=== PATIENT | female | born 1945 | race Caucasian/White ===

== ENCOUNTER 2016-08-29 15:00 | Inpatient (IN) | payer MEDICARE, OTHER ==
[~2016-08-29] VITALS: Ht 157.5 cm; Wt 98.4 kg
--- NOTE | ~2016-08-29 | OR ---
PATIENT'S NAME: JESSICA SILVESTRE [facility] AGE: 71 Y [address] ROOM: [place] [address] LOCATION: [facility] ADMIT DATE: 09/05/2016 OR/Procedure Report DISCHARGE DATE: FAMILY PHYSICIAN: Bautista Ayala MD ATTENDING PHYSICIAN: ROYA MARIO SURGEON: Roya Mario MD DIRECTOR STRATEGY: David Antonio CST/SPOT CLEANER and Trino Santana. DATE OF PROCEDURE: 09/05/2016 PRE-OP DIAGNOSES: 1. Primary osteoarthritis, right hip. 2. Obesity. POST-OP DIAGNOSES: 1. Primary osteoarthritis, right hip. 2. Obesity. OPERATION: Right total hip arthroplasty. ANESTHESIA: Spinal anesthesia plus subcutaneous and periarticular local anesthesia (ropivacaine with epinephrine). ESTIMATED BLOOD LOSS: Approximately 250 mL. DRAIN: None. SPECIMEN: None. COMPLICATIONS: None. IMPLANTS: 1. [place] Trident Tritanium, size 50 mm, hemispherical, uncemented acetabular shell with 1 dome hole cover and no screws. 2. [place]arth X3 neutral acetabular polyethylene liner with 36 mm inner diameter. 3. [place] Accolade II, size 4, high-offset, uncemented femoral component. 4. 36 mm metallic femoral head with +5 mm neck length. INDICATION FOR SURGERY: Jessica Silvestre is a 71-year old female who presents with advanced right hip primary osteoarthritis and associated severely compromised activities of daily living. The patient has decided to proceed with hip replacement after having been thoroughly counseled regarding the associated risks, benefits, and limitations. We have specifically reviewed the risks and implications of infection, deep venous thrombosis, pulmonary embolism, PATIENT'S NAME: JESSICA SILVESTRE [facility] AGE: 71 Y [address] ROOM: [place] [address] LOCATION: [facility] ADMIT DATE: 09/05/2016 OR/Procedure Report DISCHARGE DATE: FAMILY PHYSICIAN: Bautista Ayala MD ATTENDING PHYSICIAN: ROYA MARIO mortality, neurovascular complications, blood transfusion (and associated potential for disease transmission or transfusion reaction), stiffness, instability, leg length discrepancy, mechanical deterioration of the components (due to wear and to loosening), and the potential need for revision. DESCRIPTION OF PROCEDURE: The patient was positioned in a lateral decubitus position with the right side up after administration of anesthesia and prophylactic antibiotics. An axillary roll was placed and the non-operative leg was well padded. The pelvis was locked perpendicularly to the floor on a pegboard. The right hip and entire operative extremity were prepped and draped with vigilant sterile technique. The patient's name as well as the intended operative side and procedure were confirmed with a verbal time-out involving myself, the circulating nurse, the scrub nurse, and the anesthesiologist. The right hip was approached through a standard posterolateral incision. The fascia randolph and the gluteus vu fascia were sharply divided in line with the overlying skin incision. The sciatic nerve was identified and was vigilantly protected throughout the entire case. The short external rotators and posterior capsule were divided from their respective femoral insertions and tagged with four #1 Ethibond sutures for later repair. The hip was posteriorly dislocated with combined flexion, adduction, and internal rotation. The femoral neck osteotomy was performed with an oscillating saw. Inspection of the femoral head demonstrated full-thickness loss of articular cartilage throughout the majority of its weightbearing surface. There were small osteophytes at the periphery of the femoral head. There was no collapse of the femoral head. The patient was noted to be moderately severely osteopenic. Circumferential acetabular exposure was obtained. Examination of the acetabulum demonstrated a large effusion consisting of benign-appearing translucent synovial fluid. There was full- thickness loss of articular cartilage throughout the majority of the acetabular dome. There was extensive degenerative tearing of the anterior acetabular labrum. There was no dysplasia. There were no loose bodies. Remnants of the acetabular labrum were sharply thoroughly excised. The acetabulum was sequentially progressively reamed up to 49 mm with hemispherical power reamers. The final acetabular shell was impacted into position in 20 degrees of anteversion and 45 degrees of inclination. An excellent press-fit was obtained. No supplemental dome screw fixation was necessary. A neutral trial liner was inserted. Attention was next focused upon femoral preparation. The femoral canal PATIENT'S NAME: JESSICA SILVESTRE [facility] AGE: 71 Y [address] ROOM: [address] [address] LOCATION: [facility] ADMIT DATE: 09/05/2016 OR/Procedure Report DISCHARGE DATE: FAMILY PHYSICIAN: Bautista Ayala MD ATTENDING PHYSICIAN: ROYA MARIO initiator was utilized. No reaming was performed (except for with the canal finder). Again, the patient was noted to be moderately severely osteopenic (particularly during reaming, wherein the canal finder could be inserted without any type of rotation to advance it). The femoral canal was subsequently sequentially progressively broached up to a size 4. The size 4 broach obtained excellent axial and rotational stability. Trial reductions with the above specified construct yielded acceptable stability and acceptable reproduction of leg length and offset. All trial components were removed. The final acetabular liner was inserted with excellent circumferential visualization of its locking mechanism to assure adequate deployment. The final femoral component was impacted into position. The femoral component achieved excellent axial and rotational stability. The trunnion of the femoral component was vigilantly protected prior to placement of the femoral head. The trunnion of the femoral component was thoroughly cleaned and dried prior to placement of the femoral head. The incision was thoroughly irrigated with bacteriostatic pulsatile saline lavage multiple times throughout the case. The entire joint space was thoroughly inspected and thoroughly irrigated to assure that there was no residual debris of any sort. A final reduction was then performed. After final reduction, the hip could be firmly externally rotated in full extension and zero degrees of abduction without anterior subluxation. In neutral rotation and zero degrees of abduction, the hip could be firmly flexed to 120 degrees without instability. At 90 degrees of flexion and zero degrees abduction, the hip could be internally rotated to 65 degrees before there was any hint of posterior subluxation. The posterior capsule and short external rotators were repaired through two drill holes in the posterior aspect of the greater trochanter. The fascia randolph and gluteus vu fascia were closed with multiple simple and [id number] interrupted # 1 Ethibond and #1 Vicryl sutures. Subcutaneous tissues were thoroughly re-irrigated with bacteriostatic pulsatile saline lavage. Subcutaneous tissues were re-approximated with simple buried interrupted #0 Vicryl sutures. The skin was closed with superficial buried interrupted 2-0 Vicryl sutures followed by a running subcuticular 3-0 Monocryl suture, followed by Octylseal, followed by Steri-Strips with benzoin, followed by an occlusive Mepilex dressing. There were no intra-operative complications. It should be noted that the patient's connective tissue status was poor in all respects. There was abundant subcutaneous adipose tissue (approximately 6 PATIENT'S NAME: JESSICA SILVESTRE [facility] AGE: 71 Y [address] ROOM: [id number] [place] [id number] LOCATION: [facility] ADMIT DATE: 09/05/2016 OR/Procedure Report DISCHARGE DATE: FAMILY PHYSICIAN: Bautista Ayala MD ATTENDING PHYSICIAN: ROYA MARIO between skin and fascia). This was quite loose. Likewise, the patient's fascia was redundant and, thus, I accepted slight increased offset and leg length in order to achieve acceptable stability. This patient is deemed to be at increased risk for postoperative instability due to her poor connective tissue status. MD HUMBLE CUEVAS/monael /[id number] d: 09/05/16 1001 t: 09/16/16 1004, OPERATIVE SUMMARY
--- NOTE | ~2016-08-29 | DS ---
PATIENT'S NAME: RICARDO SILVESTRE [facility] AGE: 71 Y [address] ROOM: [place] [address] LOCATION: [facility] ADMIT DATE: 09/05/2016 Discharge Summary DISCHARGE DATE: 09/07/2016 FAMILY PHYSICIAN: Bautista Ayala MD ATTENDING PHYSICIAN: Jalen Mojica PRIMARY DIAGNOSIS: Osteoarthritis, right hip. SECONDARY DIAGNOSES: 1. Obesity. 2. Depression. 3. Hypertension. 4. Hyperlipidemia. 5. Prediabetes. PROCEDURE PERFORMED: Right total hip arthroplasty. HISTORY: The patient is a 71-year-old female, who presents with advanced right hip degenerative joint disease and associated severely compromised activities of daily living. The patient has decided to proceed with total right hip arthroplasty after having been thoroughly counseled regarding the risks, benefits, limitations and alternatives. Please refer to the outpatient clinic notes and admission history and physical for this patient. HOSPITAL COURSE: The patient underwent a total right hip arthroplasty on 09/05/2016 without complications. Spinal anesthesia plus subcutaneous and periarticular local anesthesia Was utilized. The patient received 24 hours of perioperative prophylactic antibiotics and remained hemodynamically stable, neurovascularly intact throughout the entire hospital course. The postoperative prophylactic deep venous thrombosis prophylaxis consisted of Xarelto, early mobilization and pneumatic compression devices. Daily physical therapy for gait training, transfer training, and reinforcement of hip dislocation precautions were received. The patient progressed well in physical therapy. On the date of discharge, 09/07/2016, the incision at the hip was healing well and showed no signs of infection. DISPOSITION: Home. DISCHARGE ACTIVITY: The patient is to bear weight as tolerated with strict hip dislocation precautions as instructed. There are to be no dressing changes. Dr. Mojica is to be notified immediately if there is any increased pain, fevers, chills, erythema or drainage. DISCHARGE MEDICATIONS: 1. Xarelto 10 mg, take 1 tablet p.o. daily for DVT prevention. PATIENT'S NAME: RICARDO SILVESTRE [facility] AGE: 71 Y [address] ROOM: [place] [address] LOCATION: [facility] ADMIT DATE: 09/05/2016 Discharge Summary DISCHARGE DATE: 09/07/2016 FAMILY PHYSICIAN: Bautista Ayala MD ATTENDING PHYSICIAN: Jalen Mojica 2. Dilaudid 2 mg, take 1 to 2 tablets p.o. every 4 hours as needed for pain. FOLLOWUP: Followup appointment is to be with Dr. Mojica on Monday September 12, 2016 for initial postoperative evaluation. LAZARO LEON FOR MD JUAREZ CUEVASB/modl /[id number] d: 09/13/16 0348 t: 09/26/16 0715, DISCHARGE SUMMARY
[~2016-08-29 15:00] MED LIST: CO Q10 PO; CO Q10200 MG PO; COLACE100 MG PO; DILAUDID 2MG(HYD2 MG PO; GLUCOPHAGE500 MG PO; HYDRODIURIL25 MG PO; MIRALAX17 GM PO; PRAVASTATIN SOD20 MG PO; PRINIVIL (ZESTR20 MG PO; PROPRANOLOL HCL80 M1 PO; ROSUVASTATIN CAL5 MG PO; TYLENOL EXTRA500 MG PO; VALIUM5 MG PO; VITAMIN D1000 UNI1 PO; XARELTO10 MG PO
--- NOTE | 2016-09-05 13:00 | NUR ---
Introduced self/role to patient. Reviewed and encouraged use of IS, moving feet. Has foot pumps on bilat. Has DME from prior surgery; denies needs/concerns. Reports will help as needed upon discharge. Will follow and assist if needs/concerns identified.
--- NOTE | 2016-09-05 15:57 | NUR ---
Significant Event: Came up from PACU at 1130. Mepilex dressing to R)hip C/D/I. Ice applied. Dilaudid given for pain. LR running at 80ml/hr. B/P meds held due to hypotension 100's/60's. 1L/O2. Up with 1 assist with walker. Follow up:
--- NOTE | 2016-09-06 03:48 | NUR ---
Significant Event: Dressing is clean, dry and intact. CSM WNL. 1 assist with transfers. Voids without difficulty. On room air. Bradycardic at times. Dilaudid last at 0310. Follow up:
[2016-09-06 05:47] LABS: HEMATOCRIT 31.6 % (33.0-46.0); HEMOGLOBIN 10.5 g/dL (10.0-15.0)
--- NOTE | 2016-09-06 12:53 | NUR ---
Significant Event: AOx3. Hypotensive. Held B/P meds. DIlaudid and Toradol given for pain. Up with 1 assist. Dressing C/D/I.Planning on discharging home tomorrow. Follow up:
--- NOTE | 2016-09-06 13:01 | NUR ---
Introduced self and CM role to patient. She identified that she had knee surgery a little over a year ago, so she has all the DME she needs to recover. Plans to return back to her home in [place] with support with her . No other needs or concerns at this time. CM [employer] Rep TH.
--- NOTE | 2016-09-07 04:39 | NUR ---
Significant Event: Dressing is clean, dry and intact. CSM WNL. Voids without difficulty. 1 assist with transfers. Last Dilaudid at 0140. Possible dismissal today. Follow up:
[2016-09-07] MEDS ORDERED: COLACE100 MG PO (12:32)
[2016-09-07] MEDS ORDERED: TYLENOL EXTRA500 MG PO (12:34)
[2016-09-07] MEDS ORDERED: NEURONTIN300 MG (12:39)
[2016-09-07] MEDS ORDERED: MIRALAX17 GM PO (12:41)
[2016-09-07] MEDS ORDERED: XARELTO10 MG PO (12:42)
[2016-09-07] MEDS ORDERED: DILAUDID 2MG(HYD2 MG PO (12:43)
== END 2016-09-07 14:01 | disposition disaster alternative care site (69) | DRG 470 ==
LOC: GPOC 15:00 → EDSTATUS 15:00 → G3N 09-05 05:04
PROVIDERS: ADMIT Orthopaedic Surgery
PROC: 0SR902A Replacement of Right Hip Joint with Metal on Polyethylene Synthetic Substitute, Uncemented, Open Approach (ICD-10-PCS; principal; 2016-09-05)
DX: M16.11 Unilateral primary osteoarthritis, right hip (principal); E66.9 Obesity, unspecified; I10 Essential (primary) hypertension; R26.2 Difficulty in walking, not elsewhere classified; R73.03 Prediabetes; F32.9 Major depressive disorder, single episode, unspecified; E78.5 Hyperlipidemia, unspecified; Z68.39 Body mass index [BMI] 39.0-39.9, adult
CPT/HCPCS: C1776; J0690; J1100; J1885; J2001; J2250; J2405; J2795; J7030; J7120

== ENCOUNTER → 2016-12-08 | Outpatient (CLI) | payer MEDICARE, OTHER ==
[~2016-12-08] MED LIST changes: +NEURONTIN300 MG
== END | disposition disaster alternative care site (69) ==
LOC: GRAD 09:20
DX: M25.551 Pain in right hip (principal); M54.5 Low back pain; M48.06 Spinal stenosis, lumbar region; S33.39XA Dislocation of other parts of lumbar spine and pelvis, initial encounter; M12.88 Other specific arthropathies, not elsewhere classified, other specified site; X58.XXXA Exposure to other specified factors, initial encounter